=== PATIENT | male | born 1990 | race African-American/Black ===

== ENCOUNTER 2017-01-06 13:07 | Emergency (ER) | payer OTHER ==
[~2017-01-06] VITALS: Ht 185.4 cm; Wt 100.0 kg
[2017-01-06 13:07] VITALS: TEMP 37.1; Ht 185.4 cm; Wt 100.0 kg
[2017-01-06 14:33] LABS: HEMATOCRIT 44.2 % (42-52); MEAN CELL VOLUME 93.2 fL (80-100); MEAN CORPUSCULAR HEMOGLOBIN 32.5 pg (25-34); MEAN CORPUSCULAR HGB CONC 34.8 g/dl (32-36); MEAN PLATELET VOLUME 10.5 fL (7.4-10.4); PLATELET COUNT 162 K/uL (130-400); RED BLOOD COUNT 4.74 M/uL (4.7-6.1); WHITE BLOOD COUNT 3.34 K/uL (4.8-10.8)
--- NOTE | 2017-01-06 14:45 | DIAGNOSTIC IMAGING REPORT ---
CHEST ONE VIEW PORTABLE HISTORY: dizzy COMPARISON: None. FINDINGS: The lungs are clear. Cardiac silhouette is normal in size. No pleural effusions. No pneumothorax. IMPRESSION: No acute process. Electronically signed by: Dorian Bates M.D. 01/06/2017 2:44 PM Dictated Date/Time: 01/06/2017 2:42 PM
[2017-01-06 14:53] LABS: BASO % 0.6 %; BASO ABS # 0.02 K/uL (0-0.2); COMPLETE YES; EOS % 0.9 %; LYMPH % 58.1 %; LYMPH ABS # 1.94 K/uL (1.2-3.4); MONO % 6.3 %; NEUT % 34.1 %
[2017-01-06 14:59] LABS: BLOOD UREA NITROGEN 18 mg/dl (7-18); BUN/CREATININE RATIO 14.8 (10-20); CALCIUM 9.1 mg/dl (8.5-10.1); CARBON DIOXIDE 26 mmol/L (21-32); CHLORIDE 107 mmol/L (98-107); GLUCOSE 62 mg/dl (70-99); POTASSIUM 3.7 mmol/L (3.5-5.1); SODIUM 141 mmol/L (136-145)
[2017-01-06 17:01] VITALS: BP 144/86; PULSE 61; O2SAT 100
--- NOTE | 2017-01-06 19:30 | EMERGENCY ROOM VISIT NOTE ---
History Report prepared by Vin: Garth Trujillo Under the Supervision of: Dr. John Taylor D.O. First contact with patient: 13:45 Chief Complaint: DIZZY Stated Complaint: DIZZINESS History of Present Illness The patient is a 26 year old male who presents to the Emergency Room from the retirement with complaints of an episode of lightheadedness that occurred prior to arrival today. He says that he was using the restroom having a bowel movement when he started feeling lightheaded, and he then fell to the ground. The patient states that he had a fluttering in his chest that went away on its own. He had an EKG there which was interpreted as atrial fibrillation, and was sent here. The patient notes that he remembers being told that he had an irregular heartbeat there. The patient says that he only currently has a slight headache. Patient denies diabetes, hypertension, hyperlipidemia, CAD, history of sudden at a young age, and smoking. Patient denies swelling of calves, recent trips, history of immobilization or recent surgery, prior history of DVT, hemoptysis, history of malignancy, or control/estrogen use. The patient says that he exercises often, and does not normally get chest pain when running. Source of History: patient Onset: Prior to arrival today Position: other (global - lightheadedness) Timing: other (episode) Associated Symptoms: + headache Note: Associated symptoms: [place] fluttering in chest, now resolved. Fell to ground while having bowel movement. Review of Systems See HPI for pertinent positives & negatives. A total of 10 systems reviewed and were otherwise negative. Past Medical & Surgical Medical Problems: (1) No chronic diseases present Family History No pertinent family history Social History Alcohol Use: none Drug Use: none Housing Status: other (retirement) Occupation Status: other (retirement) Current/Historical Medications No Active Prescriptions or Reported Meds Allergies Coded Allergies: No Known Allergies (Unverified , 01/06/17) Physical Exam Vital Signs Date Time Temp Pulse Resp B/P (MAP) Pulse Ox O2 Delivery O2 Flow Rate FiO2 01/06/17 17:01 61 10 144/86 100 Room Air 01/06/17 16:00 54 18 151/91 97 Room Air 01/06/17 15:00 54 16 143/86 98 Room Air 01/06/17 14:00 69 19 134/86 96 Room Air 01/06/17 13:16 65 01/06/17 13:07 37.1 66 15 139/88 100 Room Air Physical Exam GENERAL: sitting up in bed, alert, well appearing, well nourished, no distress, non-toxic EYE EXAM: normal conjunctiva, PERRL and EOM's grossly intact OROPHARYNX: no exudate, no erythema, lips, buccal mucosa, and tongue normal and mucous membranes are moist NECK: supple, no nuchal rigidity, no adenopathy, non-tender LUNGS: Clear to auscultation. Normal chest wall mechanics HEART: no murmurs, S1 normal and S2 normal ABDOMEN: abdomen soft, non-tender, normo-active bowel sounds, no masses, no rebound or guarding. BACK: Back is symmetrical on inspection and there is no deformity, no midline tenderness, no CVA tenderness. SKIN: no rashes and no bruising UPPER EXTREMITIES: upper extremities are grossly normal. LOWER EXTREMITIES: No pitting edema. NEURO EXAM: Normal sensorium, cranial nerves II-XII intact, normal speech, no weakness of arms, no weakness of legs. No drift. Finger to nose intact. Gross sensation intact. Medical Decision & Procedures ER Provider Diagnostic Interpretation: X-ray results as stated below per my review and the radiologist's interpretation : CHEST ONE VIEW PORTABLE HISTORY: dizzy COMPARISON: None. FINDINGS: The lungs are clear. Cardiac silhouette is normal in size. No pleural effusions. No pneumothorax. IMPRESSION: No acute process. Electronically signed by: Dorian Bates M.D. 01/06/2017 2:44 PM Dictated Date/Time: 01/06/2017 2:42 PM Laboratory Results 01/06/17 12:55 Red Blood Count 4.74, Mean Corpuscular Volume 93.2, Mean Corpuscular Hemoglobin 32.5, Mean Corpuscular Hemoglobin Concent 34.8, Mean Platelet Volume 10.5, Neutrophils (%) (Auto) 34.1, Lymphocytes (%) (Auto) 58.1, Monocytes (%) (Auto) 6.3, Eosinophils (%) (Auto) 0.9, Basophils (%) (Auto) 0.6, Neutrophils # (Auto) 1.14, Lymphocytes # (Auto) 1.94, Monocytes # (Auto) 0.21, Eosinophils # (Auto) 0.03, Basophils # (Auto) 0.02 01/06/17 12:55 Test 01/06/17 12:55 01/06/17 13:27 01/06/17 16:21 White Blood Count 3.34 K/uL (4.8-10.8) Red Blood Count 4.74 M/uL (4.7-6.1) Hemoglobin 15.4 g/dL (14.0-18.0) Hematocrit 44.2 % (42-52) Mean Corpuscular Volume 93.2 fL (80-100) Mean Corpuscular Hemoglobin 32.5 pg (25-34) Mean Corpuscular Hemoglobin Concent 34.8 g/dl (32-36) Platelet Count 162 K/uL (130-400) Mean Platelet Volume 10.5 fL (7.4-10.4) Neutrophils (%) (Auto) 34.1 % Lymphocytes (%) (Auto) 58.1 % Monocytes (%) (Auto) 6.3 % Eosinophils (%) (Auto) 0.9 % Basophils (%) (Auto) 0.6 % Neutrophils # (Auto) 1.14 K/uL (1.4-6.5) Lymphocytes # (Auto) 1.94 K/uL (1.2-3.4) Monocytes # (Auto) 0.21 K/uL (0.11-0.59) Eosinophils # (Auto) 0.03 K/uL (0-0.5) Basophils # (Auto) 0.02 K/uL (0-0.2) RDW Standard Deviation 45.4 fL (36.4-46.3) RDW Coefficient of Variation 13.2 % (11.5-14.5) Immature Granulocyte % (Auto) 0.0 % Immature Granulocyte # (Auto) 0.00 K/uL (0.00-0.02) Anion Gap 8.0 mmol/L (3-11) Est Creatinine Clear Calc Drug Dose 117.0 ml/min Estimated GFR () 96.8 Estimated GFR (Non- 83.5 BUN/Creatinine Ratio 14.8 (10-20) Calcium Level 9.1 mg/dl (8.5-10.1) Chemistry Specimen Hemolysis Bedside Glucose 78 mg/dl (70-99) Troponin I < 0.015 ng/ml (0-0.045) Laboratory results per my review. ECG Indication: other (dizzy) Rate (beats per minute): 66 Rhythm: sinus rhythm Findings: other (normal axis, incomplete RBBB, poor baseline in septal leads) ED Course ED COURSE: Vital signs were reviewed and showed hypertensive vitals. The patients medical record was reviewed The above diagnostic studies were performed and reviewed. ED treatments and interventions as stated above. 1400: The patient was evaluated in room C8. A complete history and physical examination was performed. Upon review, EKG interpreted at retirement showed a normal sinus rhythm at 66 bpm, normal axis, incomplete RBBB. 1539: I reevaluated the patient and he feels fine. 1709: Upon reevaluation, the patient is feeling fine.I discussed my findings with the patient and he understands and agrees with the treatment plan. Based on the patients age, coexisting illnesses, exam and lab findings the decision to treat as an outpatient was made. The patient remained stable while under my care. The patient appeared well at the time of discharge. Medical Decision Differential diagnosis includes etiologies such as benign positional vertigo, dehydration, hypovolemia, anemia, tumor, infection, hypoglycemia, electrolyte abnormalities, cardiac sources, intracerebral event, toxicologic, neurologic, as well as others were entertained. Patient is a 26-year-old male who presents to the ER following having a bowel movement feeling very lightheaded and dizzy. He was evaluated at the retirement and found to be in A. fib by EKG and was sent in to be evaluated. I reviewed this EKG and it shows a normal sinus rhythm. EKG here confirms this. Patient denies any chest pain or shortness of breath. Troponins 2 were negative. CBC shows no significant leukocytosis. BMP was unremarkable as well. Patient was updated at bedside and was discharged back to the retirement following what I believed to be a vasovagal episode. Discussed with Pt concerning signs and symptoms to watch out for. Pt was instructed to follow up with their PCP and discussed with the patient their option to return to the ED at anytime for persistent or worsening symptoms. The appropriate anticipatory guidance and out- patient management, including indications for return to the emergency department , were explained at length to the patient and understood. Medication Reconcilliation Current Medication List: was personally reviewed by me Blood Pressure Screening Patient's blood pressure: Elevated blood pressure Blood pressure disposition: Elevated BP felt to be situational Impression Primary Impression: Dizziness Scribe Attestation The scribe's documentation has been prepared under my direction and personally reviewed by me in its entirety. I confirm that the note above accurately reflects all work, treatment, procedures, and medical decision making performed by me. Departure Information Dispostion Home / Self-Care Prescriptions No Active Prescriptions or Reported Meds Referrals Efe DAVID (PCP) Patient Instructions ED Near Syncope Vasovagal, My [facility] Additional Instructions Please follow up with your primary care doctor or if you are a student, [facility] with in the next 24 hours. Any worsening of your symptoms, please return to the ED immediately. This includes any fevers greater than 100.4, worsening pain, chest pain, shortness breath, persistent nausea, vomiting, unable to eat or drink, or any other concerning signs or symptoms from your standpoint. You were given medications during this visit that will inhibit your ability to drive, operate machinery and work. Please do NOT drive, operate machinery, drink alcohol or work for the next 12hrs. Your EKG shows a normal sinus rhythm. Please follow up with the retirement doctor.
== END 2017-01-06 17:23 | disposition home or self-care (01) ==
LOC: C.EDC 13:14
DX: R42 Dizziness and giddiness (principal)